=== PATIENT | male | born 2005 | race Hispanic/Latino ===

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

== ENCOUNTER 2024-06-25 06:29 | Emergency (ER) | payer SELFPAY ==
[~2024-06-25] VITALS: Ht 165.1 cm; Wt 76.0 kg
[~2024-06-25 06:29] MED LIST changes: +IBUPROFEN600 MG PO
[2024-06-25 06:39] VITALS: BP 111/81
[2024-06-25 07:00] VITALS: BP 118/92
[2024-06-25 07:30] VITALS: BP 106/66
[2024-06-25 07:50] VITALS: BP 106/66
== END 2024-06-25 07:50 | disposition home or self-care (01) | DRG 179 ==
LOC: ED 06:29
DX: U07.1 COVID-19 (principal); R09.89 Other specified symptoms and signs involving the circulatory and respiratory systems; R09.81 Nasal congestion; R26.89 Other abnormalities of gait and mobility

== ENCOUNTER 2025-01-11 17:00 | Emergency (ER) | payer SELFPAY ==
[~2025-01-11] VITALS: Ht 165.1 cm; Wt 77.0 kg
[~2025-01-11 17:00] MED LIST changes: +ANUCORT-HC25 MG RE
[2025-01-11 17:07] VITALS: BP 148/96
[2025-01-11] MEDS ORDERED: NAPROXEN 250 MG/TAB PO ONE (17:10)
[2025-01-11] MEDS ORDERED: Diph, Acellular Pertussis, Tet 0.5 ML/VIAL (Tdap) SDV IM ONE (17:10)
[2025-01-11 17:16] VITALS: BP 139/70
[2025-01-11 17:31] VITALS: BP 110/65
[2025-01-11] MEDS ORDERED: NAPROXEN500 MG PO (18:46)
[2025-01-11 18:53] VITALS: BP 110/65
== END 2025-01-11 19:10 | disposition home or self-care (01) | DRG 605 ==
LOC: ED 17:00
DX: S80.212A Abrasion, left knee, initial encounter (principal); S80.02XA Contusion of left knee, initial encounter; W22.09XA Striking against other stationary object, initial encounter; Y99.0 Civilian activity done for income or pay
CPT/HCPCS: 90715